=== PATIENT | male | born 1980 | race Caucasian/White ===

== ENCOUNTER 2016-09-02 23:43 | Emergency (ER) | payer OTHER, BC ==
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
[2016-09-03] MEDS ORDERED: Lidocaine 1% 10 ML MDV INJECT ONE (00:40)
[2016-09-03] MEDS ORDERED: Lidocaine 1% 50 ML MDV ONE (00:43)
[2016-09-03] MEDS ORDERED: HYDROmorphone 1 MG/ML Syringe IVPUSH ONE ×2 (00:45→02:14)
[2016-09-03] MEDS ORDERED: Metoclopramide 10 MG/2 ML SDV IVPUSH ONE (00:45)
[2016-09-03] MEDS ORDERED: Metoclopramide 10 MG/2 ML SDV ONE (00:49)
[2016-09-03] MEDS ORDERED: Ondansetron 4 MG Tab.DIS PO ONE (03:04)
[2016-09-03 03:18] VITALS: BP 149/90
--- NOTE | 2016-09-03 17:45 | CT ---
CT chest Technique: Multiple axial sections were obtained through the chest. Intravenous contrast was utilized. Comparison: No previous study. Findings: Mediastinum and hilar regions show no adenopathy or mass. Mild increased density within the anterior mediastinum is seen felt compatible with residual thymic tissue. No coronary artery calcification seen at this time. No pericardial thickening is seen. Right and left axillary regions are unremarkable. Lungs are clear and show no pleural effusions or pulmonary contusion. No pneumothorax is identified. Bone window settings were reviewed which show no discrete rib fracture. Impression: 1. Unremarkable CT exam of the chest. Agree with preliminary report issued by [employer] (preliminary report dictated on 09/03/16, 1:38 AM Central Time) Diagnostic code #1 CT abdomen and pelvis Technique: Multiple axial sections were obtained from above the dome of the diaphragm inferiorly through the pubic symphysis. Intravenous contrast was utilized. No oral contrast has been given. Delayed images were also obtained through the bladder. Findings: Liver shows slight fatty infiltration. No focal abnormality appreciated within the liver. Spleen appears within normal limits. Adrenal glands show no nodule. Kidneys show symmetric contrast enhancement without hydronephrosis or mass. Pancreas is within normal limits. Aorta shows no aneurysmal dilatation. Gallbladder shows no calcified gallstones. No gallbladder wall thickening or biliary duct dilatation is seen. Appendix is seen which appears normal. No pelvic mass or adenopathy is seen. Small fat-containing inguinal hernias are noted. Delayed images show contrast within the distal ureter and within the bladder. No bowel wall thickening is seen. No free fluid or inflammatory change is seen. Impression: 1. Incidental fat-containing inguinal hernias. 2. Nothing acute is identified on CT study of the abdomen and pelvis. Agree with preliminary report issued by [employer] (preliminary report dictated on 09/03/16, 1:43 AM Central Time) Diagnostic code #2
--- NOTE | 2016-09-03 17:45 | CT ---
CT cervical spine Technique: Multiple axial sections were obtained from above C1 inferiorly through T1. Reconstructed sagittal and coronal images were obtained. Comparison: No previous cervical spine imaging. Findings: Vertebral body heights are maintained. Mild disc space narrowing noted at C5-C6. Slight anterior and posterior osteophytes noted at C5-C6. No bony central or bony neural foraminal stenosis is seen. Vertebral bodies and posterior arches are intact with no fracture being seen. Mastoid sinuses and posterior skull base are intact. No abnormal subluxation is seen. Impression: 1. Minimal degenerative change. Nothing acute is identified on CT study of the cervical spine. Agree with preliminary report issued by [facility] [employer] (preliminary report dictated on 09/03/16, 1:16 AM Central Time) Diagnostic code #2
--- NOTE | 2016-09-03 17:45 | CT ---
Head CT Technique: Multiple axial sections through the brain were obtained. Intravenous contrast was not utilized. Comparison: No previous study. Findings: Soft tissue air is seen within the scalp. Areas of soft tissue swelling are also seen within the scalp. No abnormal parenchymal densities are seen. No evidence of intracranial hemorrhage. No midline shift or mass effect is seen. Bone window settings were reviewed which show no discrete calvarial abnormality. Visualized sinuses are clear. Fracture partially seen within the nasal bone. Impression: 1. Area of soft tissue air within the right scalp. Scattered areas of soft tissue swelling are noted within the scalp. 2. Partially visualized nasal bone fracture. 3. No acute intracranial abnormality is seen. No skull fracture is identified. Agree with preliminary report issued by [facility] (preliminary report dictated on 09/03/16, 1:12 AM Central Time) Diagnostic code #3
--- NOTE | 2016-09-03 17:45 | CT ---
CT facial bones Technique: Multiple axial sections through the facial bones were obtained. Reconstructed coronal and sagittal images were obtained. Findings: Slightly displaced nasal bone fracture is seen. Small fracture also noted within the anterior nasal spine. Nasal septum shows deviation but no acute fracture is seen. Right and left globes are symmetric. No orbital wall fracture is seen. Minimal mucosal thickening is noted within the ethmoid and left maxillary sinus which is incidental. No additional facial bone fracture is seen. Impression: 1. Slightly displaced nasal bone fracture as well as fracture within the anterior nasal spine. 2. Minimal areas of mucosal thickening which are incidental. 3. No additional facial bone fracture is seen. Agree with preliminary report issued by [facility] (preliminary report dictated on 09/03/16, 1:21 AM Central Time) Diagnostic code #3
--- NOTE | 2016-09-03 17:45 | CT ---
CT thoracic spine Technique: Multiple axial images were obtained through the thoracic spine. Reconstructed sagittal and coronal images were reviewed. Findings: Vertebral body heights and disc spaces are maintained. Vertebral bodies and posterior arches are intact with no fracture being seen. No bony central or bony neural foraminal stenosis is seen. Mild scoliosis is noted. No abnormal subluxation is appreciated. Impression: 1. Mild scoliosis. 2. Nothing acute is identified on CT study of the thoracic spine. Agree with preliminary report issued by [facility] (preliminary report dictated on 09/03/16, 1:48 AM Central Time) Diagnostic code #2
--- NOTE | 2016-09-03 17:45 | CT ---
CT lumbar spine Technique: Multiple axial sections were obtained through the thoracic spine. Reconstructed coronal and sagittal images were reviewed. Findings: Vertebral body heights and disc spaces are maintained. Vertebral bodies and posterior arches are intact. No fracture is seen. No abnormal subluxation is seen on the reconstructed sagittal images. Impression: 1. No abnormality is identified on CT study of the lumbar spine. Agree with preliminary report issued by [facility] (preliminary report dictated on 09/03/16, 1:46 AM Central Time) Diagnostic code #1
--- NOTE | 2016-09-05 09:12 | CR ---
Right hand: Four views of the right hand were obtained. Comparison: No previous hand study. Fracture is identified within the mid to distal shaft of the fifth metacarpal. [place] posterior angulation is seen with soft tissue swelling. No additional fracture or other bony abnormality is seen. Impression: 1. Mildly angulated fifth metacarpal fracture with soft tissue swelling. Diagnostic code #3
== END 2016-09-03 03:00 | disposition home or self-care (01) ==
LOC: JD.ED 23:43
DX: S06.0X0A Concussion without loss of consciousness, initial encounter (principal); S02.2XXA Fracture of nasal bones, initial encounter for closed fracture; S01.511A Laceration without foreign body of lip, initial encounter; S62.326A Displaced fracture of shaft of fifth metacarpal bone, right hand, initial encounter for closed fracture; S01.01XA Laceration without foreign body of scalp, initial encounter; T14.8 Other injury of unspecified body region; V29.88XA Motorcycle rider (driver) (passenger) injured in other specified transport accidents, initial encounter; Y92.411 Interstate highway as the place of occurrence of the external cause
CPT/HCPCS: 12002; 12013; 29125; 36415; 70450; 70486; 71260; 72125; 72128; 72131; 73130; 74177; 80053; 82150; 85025; 96374; 96375; 96376; 99285; G0390; G0480; J1170; J2765; 12004; 99284-25